=== PATIENT | female | born 1945 | race Two or more races ===

== ENCOUNTER → 2024-05-02 | Outpatient (CLI) | payer OTHER, MEDICAID, SELFPAY ==
[2024-05-02 11:05] LABS: Alanine Aminotransferase 25 U/L (10-49); Albumin, Serum 4.6 gm/dL (3.4-4.8); Albumin/Globulin Ratio 1.9 (1.2-2.2); Alkaline Phosphatase 96 U/L (46-116); Anion Gap 5 (7-16); Aspartate Amino Transferase 21 U/L (0-34); BUN/Creatinine Ratio 26 Ratio (12-20); Bilirubin,Total 0.5 mg/dL (0.3-1.2); Blood Urea Nitrogen 23 mg/dL (9-23); Calcium 9.8 mg/dL (8.3-10.6); Calcium (Corrected) 9.8 mg/dL (8.5-10.1); Carbon Dioxide 27.5 mMol/L (20.0-31.0); Cardiac Risk Estimate 3.7 RATIO (3.7-5.6); Chloride 106 mMol/L (98-107); Cholesterol 177 mg/dL (132-200); Creatinine (Component) 0.9 mg/dL (0.6-1.3); Free T4 (Free Thyroxine) 1.64 ng/dL (0.89-1.76); Globulin 2.4 gm/dL (2.3-3.5); Glucose 96 mg/dL (74-106); HDL Cholesterol 48 mg/dL (40-60); LDL Cholesterol,Calculated 108 mg/dL (0-130); Osmolality,Calculated 279 (275-295); Potassium 4.5 mMol/L (3.4-5.1); Sodium 138 mMol/L (136-145); Thyroid Stimulating Hormone 0.35 uIU/mL (0.55-4.78); Triglycerides 106 mg/dL (30-150); eGFR > 60 See Note
[2024-05-02 11:17] LABS: Glucose Estimated Average 114 mg/dL (80-131); Hemoglobin A1C 5.6 % Hgb (4.8-6.0)
== END | disposition home or self-care (01) ==
PROVIDERS: PCP Internal Medicine; Referring Provider Internal Medicine; Visit Provider Internal Medicine
DX: E03.4 Atrophy of thyroid (acquired) (principal); I10 Essential (primary) hypertension
CPT/HCPCS: 36415; 80053; 80061; 83036; 84439; 84443

== ENCOUNTER 2024-05-12 20:17 | Emergency (ER) | payer OTHER, MEDICAID, SELFPAY ==
[2024-05-12 20:25] VITALS: PULSE 62; O2SAT 97; BMI 35.6
[2024-05-12 20:42] VITALS: BP 133/72; PULSE 60; RESP 18; TEMP 36.8; O2SAT 97
--- NOTE | 2024-05-12 20:50 | XR_ITS ---
Examination: PA lateral chest 2 views Technique: Upright PA lateral chest 2 views Exam date and time: May 12, 2024 at 2114 hrs. Comparison September 14, 2022 Indications: Onset chest pain today. Findings: Mild prominence cardiac contour Cardiac leads satisfactory position Mild to moderate vascular congestion Suspicious for minimal septal edema at the lung bases No lobar pneumonia Moderate osteopenia Impression: Suspicious for early heart failure
--- NOTE | 2024-05-12 20:50 | XR_ITS ---
Examination: CT brain head without contrast. 2-D sagittal coronal reconstructions Date and time of exam:May 12, 2024 2057 hrs. Indications: Onset dizziness generalized body weakness and nausea today, history dizziness September 14, 2022 CTDI: vol (mGy):43.6 DLP: (mGycm):828 Technique: Multiple CT axial sections of the brain have been obtained, 5 mm slice thickness. Contrast has not been administered. 2-D sagittal, coronal reconstructions have been obtained Low dose protocols were performed. One or more of the following dose reduction techniques were used; automated exposure control, adjustment of the mA and/or KV according to patient size, use of iterative reconstruction technique. Findings: No significant ventricular enlargement. Intra-axial or extra-axial hemorrhage density is not seen. No mass effect or midline shift Basal cisterns are not remarkable. Fourth ventricle is midline. Cranial vault intact. Impression: Negative for acute hemorrhage, mass effect or midline shift Advise clinical correlation and short-term follow-up as clinically warranted
--- NOTE | 2024-05-12 20:50 | EKG_ITS ---
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
--- NOTE | 2024-05-12 20:51 | PD.EDRME ---
Rapid Medical Screening Exam RME Arrival date/time: 05/12/24 20:17 78-year-old female with past medical history of hypothyroidism, hypertension, diabetes, presents to the emergency department complaining of dizziness with nausea that started today. Chief Complaint: General Adult/Misc Complain Time Seen by Provider: 05/12/24 20:48 Vital signs: Vital Signs Temperature 98.3 F 05/12/24 20:42 Pulse Rate 60 05/12/24 20:42 Respiratory Rate 18 05/12/24 20:42 Blood Pressure 133/72 H 05/12/24 20:42 Pulse Oximetry (%) 97 05/12/24 20:42 Oxygen Delivery Method Room Air 05/12/24 20:42 Vital signs reviewed by provider: Yes
[2024-05-12 21:57] LABS: Basophils % (Auto) 1 % (0-2.5); Eosinophils # (Auto) 0.1 Thou/mm3 (0.0-0.5); Eosinophils % (Auto) 2 % (0-10); Hematocrit 39.6 % (36.0-46.0); Hemoglobin 13.3 g/dL (12.0-16.0); Immature Granulocytes % (Auto) 0 % (0-0); Immature Granulocytes Auto 0.01 Thou/mm3 (0.00-0.00); Lymphocytes # (Auto) 1.6 Thou/mm3 (1.0-4.8); Lymphocytes % (Auto) 21 % (10-50); Mean Corpuscular HGB Conc 33.6 g/dl (31.0-37.0); Mean Corpuscular Hemoglobin 28.6 pg (25.0-35.0); Mean Corpuscular Volume 85 fL (80-100); Monocytes # (Auto) 0.5 Thou/mm3 (0.0-0.8); Monocytes % (Auto) 6 % (0-12); Neutrophils # (Auto) 5.4 Thou/mm3 (1.8-7.7); Neutrophils % (Auto) 70 % (37-80); Nucleated Red Blood Cell % 0 /100 WBC (0); Platelet Count 172 Thou/mm3 (140-440); RDW Standard Deviation 44.2 fL (36.4-46.3); Red Blood Count 4.65 Miln/mm3 (4.00-5.20); White Blood Count 7.7 Thou/mm3 (3.6-11.0)
[2024-05-12 22:06] LABS: Partial Thromboplastin Time 23.6 Seconds (22.0-36.0); Prothrombin Time 10.9 Seconds (9.0-12.2)
[2024-05-12 22:11] LABS: Collection Type, Urine Clean Catch
[2024-05-12 22:11] LABS: B-Type Natriuretic Peptide 95 pg/mL (0-100)
[2024-05-12 22:15] LABS: Alanine Aminotransferase 15 U/L (10-49); Albumin, Serum 4.9 gm/dL (3.4-4.8); Albumin/Globulin Ratio 1.6 (1.2-2.2); Alkaline Phosphatase 96 U/L (46-116); Anion Gap 6 (7-16); Aspartate Amino Transferase 21 U/L (0-34); BUN/Creatinine Ratio 21 Ratio (12-20); Bilirubin,Total 0.3 mg/dL (0.3-1.2); Blood Urea Nitrogen 25 mg/dL (9-23); Calcium 10.1 mg/dL (8.3-10.6); Calcium (Corrected) 10.1 mg/dL (8.5-10.1); Carbon Dioxide 25.2 mMol/L (20.0-31.0); Chloride 104 mMol/L (98-107); Creatinine (Component) 1.2 mg/dL (0.6-1.3); Estimated Creatinine Clearance 38.4 mL/min (>60); Free T4 (Free Thyroxine) 1.94 ng/dL (0.89-1.76); Glucose 119 mg/dL (74-106); Osmolality,Calculated 275 (275-295); Potassium 4.1 mMol/L (3.4-5.1); Sodium 135 mMol/L (136-145); Thyroid Stimulating Hormone 0.59 uIU/mL (0.55-4.78); Total Protein 7.9 gm/dL (5.7-8.2); Troponin I < 0.020 ng/mL (0.0-0.045); eGFR 46 See Note
[2024-05-12 22:32] LABS: Bacteria,Urine 1+; Bilirubin,Urine Negative (Negative); Blood,Urine Negative (Negative); Budding Yeast,Urine Present; Clarity,Urine Turbid (Clear/Hazy); Color,Urine Yellow (Lt Yel-Yel); Glucose, Urine Trace (Negative); Hyaline Casts,Urine 1 /hpf (0-1); Ketones,Urine Negative (Negative); Leukocyte Esterase,Urine Positive (Negative); Nitrite,Urine Negative (Negative); PH,Urine 5.5 (5.0-7.0); Protein,Urine 1+ (Neg - Trace); RBC,Urine 36 /hpf (0-3); Specific Gravity,Urine 1.025 (1.001-1.035); Squamous Epithelial Cell,Urine 14 /hpf (0-5); Urobilinogen,Urine Negative mg/dL (0.0-1.0); WBC,Urine 49 /hpf (0-5)
[2024-05-12 22:33] LABS: Amphetamine/Methamp Scrn,U Negative (Negative); Barbiturate Screen,Urine Negative (Negative); Benzodiazepines Screen,Urine Negative (Negative); Benzoylecgonine Screen, Ur Negative (Negative); Fentanyl Screen,Urine Negative (Negative); Opiate Screen,Urine Negative (Negative); THC Screen,Urine Negative (Negative)
[2024-05-13 01:52] LABS: Troponin I < 0.020 ng/mL (0.0-0.045)
--- NOTE | 2024-05-13 02:15 | PD.EDADULT ---
ED General RME/HPI General Chief complaint: General Adult/Misc Complain Stated complaint: GENERAL WEAKNESS Time Seen by Provider: 05/12/24 20:48 Source: patient Arrival date/time: 05/12/24 20:17 78-year-old female with past medical history of hypothyroidism, hypertension, diabetes, presents to the emergency department complaining of dizziness with nausea that started today. Patient denies any fever, chills, shortness of breath, difficulty breathing, chest pain, vomiting, diarrhea, or any other associated symptom. Mode of arrival: ambulatory Limitations: no limitations RME / HPI RME / HPI narrative: 05/12/24 20:17 78-year-old female with past medical history of hypothyroidism, hypertension, diabetes, presents to the emergency department complaining of dizziness with nausea that started today. Related Data Home Medications ?Medication ?Instructions ?Recorded ?Confirmed montelukast 10 mg tablet 10 mg PO DAILY 02/02/19 09/15/22 sertraline 50 mg tablet 50 mg PO DAILY 02/02/19 09/15/22 alendronate 70 mg tablet 70 mg PO QWEEK 09/15/22 09/15/22 levothyroxine 25 mcg tablet 25 mcg PO QDAY 09/15/22 09/15/22 losartan 100 mg tablet 100 mg PO QDAY 09/15/22 09/15/22 metformin 500 mg tablet 500 mg PO QDAY 09/15/22 09/15/22 metoprolol succinate 50 mg 50 mg PO QDAY 09/15/22 09/15/22 tablet,extended release 24 hr Previous Rx's ?Medication ?Instructions ?Recorded ciprofloxacin HCl 250 mg tablet 250 mg PO BID 5 days #10 tabs 05/13/24 (Cipro) Allergies Allergy/AdvReac Type Severity Reaction Status Date / Time ampicillin Allergy Mild Rash Verified 01/03/21 17:14 erythromycin base Allergy Unknown Verified 01/03/21 17:14 naproxen Allergy Unknown Verified 01/03/21 17:14 Sulfa (Sulfonamide Allergy Unknown Verified 01/03/21 17:14 Antibiotics) tetracycline Allergy Unknown Verified 01/03/21 17:14 Review of Systems Review of Systems Systems Reviewed: All systems reviewed, normal except as documented Constitutional Constitutional: Reports system reviewed and no additional complaints, except as documented, Denies body ache(s), Denies chills and Denies fever(s) Eyes Eyes: Reports system reviewed and no additional complaints, except as documented and Denies change in vision ENT Ears, Nose, Mouth, and Throat: Reports system reviewed and no additional complaints, except as documented, Denies disequilibrium, Denies dizziness, Denies sore throat and Reports vertigo Cardiovascular Cardiovascular: Reports system reviewed and no additional complaints, except as documented, Denies chest pain and Denies dyspnea Respiratory Respiratory: Reports system reviewed and no additional complaints, except as documented, Denies chest congestion, Denies cough and Denies dyspnea Gastrointestinal Gastrointestinal: Reports system reviewed and no additional complaints, except as documented, Denies abdominal pain, Reports nausea and Denies vomiting Musculoskeletal Musculoskeletal: Reports system reviewed and no additional complaints, except as documented, Denies abnormal gait and Denies arthralgias Integumentary/Breasts Skin/Breast: Reports system reviewed and no additional complaints, except as documented, Denies erythema, Denies rash and Denies wounds Neurologic Neurologic: Reports system reviewed and no additional complaints, except as documented, Denies abnormal gait, Denies disequilibrium, Denies dizziness and Reports vertigo Past Medical History Past Medical History CARDIAC: Positive Hypertension; Negative Congestive Heart Failure RESPIRATORY: Positive Asthma; Negative Chronic Obstructive Pulmonary Disease (COPD) GENITOURINARY: Negative Renal Disease REPRODUCTIVE: Positive Previous Pregnancies MUSCULOSKELETAL: Positive Arthritis ENT: Positive Cataracts ENDOCRINE: Positive Diabetes Mellitus Type 2 and Hypothyroidism; Negative Diabetes Mellitus Type 1 PSYCHO/SOCIAL: Positive Anxiety OTHER HISTORY: Positive Measles; Negative Falls, Blood Transfusions, Anesthesia Reactions or Cancer Family History FAMILY HISTORY: Positive Family Cancer Surgical History SURGICAL: Negative Joint Replacement Social History SMOKING STATUS: Never smoker SUBSTANCE USE: does not use ED Exam General Limitations: Present no limitations General appearance: Present alert and in no apparent distress Head Head exam: Present atraumatic Eye Eye exam: Present normal appearance, PERRL and EOMI ENT ENT exam: Present normal exam, normal oropharynx and mucous membranes moist Neck Neck exam: Present normal inspection, full ROM and trachea midline Chest Chest inspection: Present normal inspection and symmetric chest wall rise Respiratory Respiratory exam: Present normal lung sounds bilaterally Cardiovascular Cardiovascular exam: Present regular rate, normal rhythm and normal heart sounds Abdominal Exam Abdominal exam: Present soft and normal bowel sounds Extremities Exam Extremities exam: Present normal inspection and full ROM Back Exam Back exam: Present normal inspection and full ROM Neurological Exam Neurological exam: Present alert, oriented X3 and CN II-XII intact Psychiatric Psychiatric exam: Present normal affect and normal mood Skin Skin exam: Present warm, dry, intact and normal color Course Quality Measures none Orders Category Date Time Status EKG (ED ONLY) *Do not use* NOW Care 05/12/24 20:[address] head/brain wo con Stat Exams 05/12/24 20:50 Completed EKG (ED Only) Stat Exams 05/12/24 20:50 Draft XR chest 2V Stat Exams 05/12/24 20:50 Completed B-Type Natriuretic Peptide Stat Lab 05/12/24 21:25 Completed CBC Stat Lab 05/12/24 21:25 Completed Comprehensive Metabolic Panel Stat Lab 05/12/24 21:25 Completed Drug Screen,Urine Stat Lab 05/12/24 22:00 Completed Free T4 (Free Thyroxine) Stat Lab 05/12/24 21:25 Completed Magnesium Stat Lab 05/12/24 21:25 Completed Partial Thromboplastin Time Stat Lab 05/12/24 21:25 Completed Prothrombin Time with INR Stat Lab 05/12/24 21:25 Completed TSH [Thyroid Stimulating Hormone] Stat Lab 05/12/24 21:25 Completed Troponin I Stat Lab 05/12/24 21:25 Completed Troponin I Stat Lab 05/13/24 01:24 Completed Urinalysis Stat Lab 05/12/24 22:00 Completed Vital Signs Vital signs: Vital Signs Temperature 98.3 F 05/12/24 20:42 Pulse Rate 60 05/12/24 20:42 Respiratory Rate 18 05/12/24 20:42 Blood Pressure 133/72 H 05/12/24 20:42 Pulse Oximetry (%) 97 05/12/24 20:42 Oxygen Delivery Method Room Air 05/12/24 20:42 97% room air within normal limit MDM Patient data External records reviewed:: [facility] previous records Clinical information provided by:: patient Social determinants that could affect healthcare access:: none Patient has the following chronic illnesses:: See chart How is presenting disease/condition affected by chronic disease/condition?: uneffected by Evaluation data The following diagnostics were reviewed and interpreted by me:: lab results, radiology exam(s) and EKG tracing(s) Lab and/or radiology exams considered but not ordered:: Ordered Interpretation Summary: Interpreted by me Medications Medications considered but not ordered:: N/A Medication administrations:: N/A Consultations Consultation(s) initiated? (list below): No Diagnosis Differential Diagnosis ED Complaint MDM: Vertigo, CVA, ST elevation myocardial infarction, non-STEMI Most likely diagnosis given after review of the tests above:: Dizziness Admission Indicated Admission indicated?: not indicated Explain why admission is indicated or not indicated:: No admission criteria Admission Request Was there a request for admission?: No Disposition Plan Disposition Plan: Discharge Discharge Attestation Discharge Attestation: The patient and all family members were given an opportunity to ask questions and understood the discharge instructions. Discharge instructions specifically effects, indications for sooner follow up or return to the emergency department, and the expected course of current diagnosis. Patient condition: Stable Medical Decision Making MDM Narrative MDM Narrative: 78-year-old female with past medical history of hypothyroidism, hypertension, diabetes, presents to the emergency department complaining of dizziness with nausea that started today. Patient denies any fever, chills, shortness of breath, difficulty breathing, chest pain, vomiting, diarrhea, or any other associated symptom. Patient GCS of 15 answering questions correctly with appropriate behavior. CBC was unremarkable for any leukocytosis or gross anemia. CBC mild elevation in BUN and GFR compared to previous labs. Patient history of hypothyroid on levothyroxine with normal TSH but elevated free T4. Urinalysis positive for bacteria, WBCs, and leukocytes. Urinalysis did have epithelial cells but due to patient's past medical history diabetes and age we will treat. Troponin and delta Trope within normal limits. EKG sinus rhythm. Chest x-ray showed suspicious early heart failure. CT head was negative for any acute process. Patient appears nontoxic and hemodynamically stable. Patient instructed to follow-up with primary care provider and have repeat thyroid levels checked as well as further workup possible early heart failure. Patient instructed to return to the emergency department for any worsening symptoms or as needed. Differential Diagnosis Differential Diagnosis: Vertigo, CVA, ST elevation myocardial infarction, non-STEMI Lab Data 05/12/24 21:25 05/12/24 21:25 Labs: Lab Results 05/12/24 05/12/24 05/13/24 Range/Units 21:25 22:00 01:24 WBC 7.7 (3.6-11.0) Thou/mm3 RBC 4.65 (4.00-5.20) Miln/mm3 Hgb 13.3 (12.0-16.0) g/dL Hct 39.6 (36.0-46.0) % MCV 85 (80-100) fL MCH 28.6 (25.0-35.0) pg MCHC 33.6 (31.0-37.0) g/dl RDW Std Deviation 44.2 (36.4-46.3) fL Plt Count 172 (140-440) Thou/mm3 Neut % (Auto) 70 (37-80) % Lymph % (Auto) 21 (10-50) % Sullivan % (Auto) 6 (0-12) % Eos % (Auto) 2 (0-10) % Baso % (Auto) 1 (0-2.5) % Neut # (Auto) 5.4 (1.8-7.7) Thou/mm3 Lymph # (Auto) 1.6 (1.0-4.8) Thou/mm3 Sullivan # (Auto) 0.5 (0.0-0.8) Thou/mm3 Eos # (Auto) 0.1 (0.0-0.5) Thou/mm3 Baso # (Auto) 0.0 (0.0-0.2) Thou/mm3 Immature Gran # (Auto) 0.01 H (0.00-0.00) Thou/mm3 Absolute Nucleated RBC 0.00 (0.00-0.00) Thou/mm3 Immature Gran % 0 (0-0) % Nucleated RBC % 0 (0) /100 WBC PT 10.9 (9.0-12.2) Seconds INR 1.0 (0.9-1.3) APTT 23.6 (22.0-36.0) Seconds Sodium 135 L (136-145) mMol/L Potassium 4.1 (3.4-5.1) mMol/L Chloride 104 (98-107) mMol/L Carbon Dioxide 25.2 (20.0-31.0) mMol/L Anion Gap 6 L (7-16) BUN 25 H (9-23) mg/dL Creatinine 1.2 (0.6-1.3) mg/dL Estim Creat Clear Calc 38.4 L (>60) mL/min eGFR 46 L (60 - ) See Note BUN/Creatinine Ratio 21 H (12-20) Ratio Glucose 119 H (74-106) mg/dL Calculated Osmolality 275 (275-295) Calcium 10.1 (8.3-10.6) mg/dL Corrected Calcium 10.1 (8.5-10.1) mg/dL Magnesium 2.0 (1.6-2.6) mg/dL Total Bilirubin 0.3 (0.3-1.2) mg/dL AST 21 (0-34) U/L ALT 15 (10-49) U/L Alkaline Phosphatase 96 (46-116) U/L Troponin I < 0.020 < 0.020 (0.0-0.045) ng/mL B-Natriuretic Peptide 95 (0-100) pg/mL Total Protein 7.9 (5.7-8.2) gm/dL Albumin 4.9 H (3.4-4.8) gm/dL Globulin 3.0 (2.3-3.5) gm/dL Albumin/Globulin Ratio 1.6 (1.2-2.2) TSH 0.59 (0.55-4.78) uIU/mL Free T4 1.94 H (0.89-1.76) ng/dL Ur Collection Type Clean Catch Urine Color Yellow (Lt Yel-Yel) Urine Clarity Turbid A (Clear/Hazy) Urine pH 5.5 (5.0-7.0) Ur Specific [place] 1.025 (1.001-1.035) Urine Protein 1+ A (Neg - Trace) Urine Glucose (UA) Trace (Negative) Urine Ketones Negative (Negative) Urine Blood Negative (Negative) Urine Nitrite Negative (Negative) Urine Bilirubin Negative (Negative) Urine Urobilinogen (Auto) Negative (0.0-1.0) mg/dL Ur Leukocyte Esterase Positive (Negative) Urine RBC 36 H (0-3) /hpf Urine WBC 49 H (0-5) /hpf Ur Squamous Epith Cells 14 H (0-5) /hpf Urine Bacteria 1+ A (None) Hyaline Casts 1 (0-1) /hpf Urine Yeast (Budding) Present A (None) Urine Opiates Screen Negative (Negative) Urine Fentanyl Screen Negative (Negative) Ur Barbiturates Screen Negative (Negative) U Amphetamin/Meth Scrn Negative (Negative) U Benzodiazepines Scrn Negative (Negative) U Cocaine Metab Screen Negative (Negative) U Marijuana (THC) Screen Negative (Negative) Discharge Plan Plan Patient Disposition: HOME (Self Care) Disposition Comment: Stable Prescriptions/Referrals Prescriptions/Med Rec: New ciprofloxacin HCl [Cipro] 250 mg tablet 250 mg PO BID 5 Days Qty: 10 0RF No Action montelukast 10 mg Tablet 10 mg PO DAILY sertraline 50 mg Tablet 50 mg PO DAILY metoprolol succinate 50 mg tablet extended release 24 hr 50 mg PO QDAY alendronate 70 mg tablet 70 mg PO QWEEK levothyroxine 25 mcg tablet 25 mcg PO QDAY metformin 500 mg tablet 500 mg PO QDAY losartan 100 mg tablet 100 mg PO QDAY Referrals: Mckayla Lopez MD [Primary Care Provider] - In 1 week Problem List Clinical Impression: Dizziness, Acute UTI Patient/Caregiver Discharge Instructions Discharge Activity: activity as tolerated Education Materials: ED Dizziness, Uncertain Cause, ED CYSTITIS Female Adult Additional Instructions: Take medication as prescribed. Follow-up with primary care provider in 24 to 48 hours. Return to emergency department for any worsening symptoms or as needed. Print Language: Macedonian Stand Alone Forms: Elinor Award Info., Patient Portal Info Letter PA/LORIN Supervising Physician PA/LORIN Supervising Physician: Dr. Hugo
[2024-05-13 02:36] VITALS: BP 168/78; PULSE 60; RESP 18; TEMP 36.4; O2SAT 99
== END 2024-05-13 02:38 | disposition home or self-care (01) ==
PROVIDERS: Emergency Provider Emergency Medicine; PCP Internal Medicine
DX: R53.1 Weakness (principal); R42 Dizziness and giddiness; R07.9 Chest pain, unspecified; R94.31 Abnormal electrocardiogram [ECG] [EKG]; N39.0 Urinary tract infection, site not specified; I10 Essential (primary) hypertension
CPT/HCPCS: 36415; 70450; 71046; 80053; 80307; 81001; 83735; 83880; 84439; 84443; 84484; 85025; 85610; 85730; 93005; 99284

== ENCOUNTER → 2024-06-09 | Outpatient (CLI) | payer OTHER, MEDICAID, SELFPAY ==
[2024-06-09 11:29] LABS: Creatinine,Random Urine 99 mg/dL (30-125)
== END | disposition home or self-care (01) ==
LOC: SLDO 10:47
PROVIDERS: PCP Internal Medicine; Referring Provider Internal Medicine; Visit Provider Internal Medicine
DX: E11.9 Type 2 diabetes mellitus without complications (principal)
CPT/HCPCS: 82570

== ENCOUNTER → 2024-09-23 | Outpatient (CLI) | payer MEDICARE, MEDICAID, SELFPAY ==
[2024-09-23 11:27] LABS: Basophils % (Auto) 1 % (0-2.5); Eosinophils # (Auto) 0.1 Thou/mm3 (0.0-0.5); Eosinophils % (Auto) 1 % (0-10); Hematocrit 36.5 % (36.0-46.0); Hemoglobin 12.2 g/dL (12.0-16.0); Immature Granulocytes % (Auto) 0 % (0-0); Immature Granulocytes Auto 0.02 Thou/mm3 (0.00-0.00); Lymphocytes # (Auto) 1.2 Thou/mm3 (1.0-4.8); Lymphocytes % (Auto) 24 % (10-50); Mean Corpuscular HGB Conc 33.4 g/dl (31.0-37.0); Mean Corpuscular Hemoglobin 28.4 pg (25.0-35.0); Mean Corpuscular Volume 85 fL (80-100); Monocytes # (Auto) 0.3 Thou/mm3 (0.0-0.8); Monocytes % (Auto) 6 % (0-12); Neutrophils # (Auto) 3.5 Thou/mm3 (1.8-7.7); Neutrophils % (Auto) 68 % (37-80); Nucleated Red Blood Cell % 0 /100 WBC (0); Platelet Count 144 Thou/mm3 (140-440); RDW Standard Deviation 43.2 fL (36.4-46.3); White Blood Count 5.1 Thou/mm3 (3.6-11.0)
[2024-09-23 11:52] LABS: Glucose Estimated Average 114 mg/dL (80-131); Hemoglobin A1C 5.6 % Hgb (4.8-6.0)
[2024-09-23 12:02] LABS: Alanine Aminotransferase 12 U/L (10-49); Albumin, Serum 4.3 gm/dL (3.4-4.8); Albumin/Globulin Ratio 1.8 (1.2-2.2); Alkaline Phosphatase 86 U/L (46-116); Anion Gap 8 (7-16); Aspartate Amino Transferase 16 U/L (0-34); BUN/Creatinine Ratio 24 Ratio (12-20); Bilirubin,Total 0.5 mg/dL (0.3-1.2); Blood Urea Nitrogen 22 mg/dL (9-23); Calcium 9.4 mg/dL (8.3-10.6); Calcium (Corrected) 9.4 mg/dL (8.5-10.1); Carbon Dioxide 25.5 mMol/L (20.0-31.0); Cardiac Risk Estimate 3.1 RATIO (3.7-5.6); Chloride 107 mMol/L (98-107); Cholesterol 144 mg/dL (132-200); Creatinine (Component) 0.9 mg/dL (0.6-1.3); Free T4 (Free Thyroxine) 1.74 ng/dL (0.89-1.76); Globulin 2.4 gm/dL (2.3-3.5); Glucose 103 mg/dL (74-106); HDL Cholesterol 46 mg/dL (40-60); LDL Cholesterol,Calculated 76 mg/dL (0-130); Osmolality,Calculated 282 (275-295); Potassium 4.1 mMol/L (3.4-5.1); Sodium 140 mMol/L (136-145); Total Protein 6.7 gm/dL (5.7-8.2); Triglycerides 110 mg/dL (30-150); eGFR > 60 See Note
[2024-09-23 12:15] LABS: Creatinine MALB Rnd Ur 71 mg/dL (30-125); Microalbumin Creat Ratio 30 mg/gCrea (<30); Microalbumin, Random Urine 21 mg/L (0-300)
== END | disposition home or self-care (01) ==
LOC: COPL 10:38
PROVIDERS: PCP Internal Medicine; Referring Provider Internal Medicine; Visit Provider Internal Medicine
DX: E03.4 Atrophy of thyroid (acquired) (principal); E11.65 Type 2 diabetes mellitus with hyperglycemia
CPT/HCPCS: 36415; 80053; 80061; 82043; 82570; 83036; 84439; 84443; 85025

== ENCOUNTER → 2024-10-06 | Outpatient (CLI) | payer MEDICARE, MEDICAID, SELFPAY ==
[2024-10-06 16:37] LABS: OBS Performed By LAB; OBS QC OK? Yes
[2024-10-06 17:42] LABS: OBS Developer Lot # I-24; Occult Blood, Stool Negative (Negative); Occult Blood, Stool #2 Negative (Negative); Occult Blood, Stool #3 Negative (Negative)
== END | disposition home or self-care (01) ==
LOC: SLDO 16:33
PROVIDERS: PCP Internal Medicine; Referring Provider Internal Medicine; Visit Provider Internal Medicine
DX: E03.4 Atrophy of thyroid (acquired) (principal); E11.65 Type 2 diabetes mellitus with hyperglycemia
CPT/HCPCS: 82270

== ENCOUNTER → 2024-11-11 | Outpatient (CLI) | payer MEDICARE, MEDICAID, SELFPAY ==
[2024-11-11 12:38] LABS: Free T4 (Free Thyroxine) 2.04 ng/dL (0.89-1.76); Thyroid Stimulating Hormone 0.25 uIU/mL (0.55-4.78)
== END | disposition home or self-care (01) ==
PROVIDERS: PCP Internal Medicine; Referring Provider Internal Medicine; Visit Provider Internal Medicine
DX: E03.4 Atrophy of thyroid (acquired) (principal)
CPT/HCPCS: 36415; 84439; 84443

== ENCOUNTER 2024-11-28 10:05 | Day surgery (SDC) | payer MEDICARE, MEDICAID, SELFPAY ==
[2024-11-27 13:37] VITALS: BMI 32.9
[2024-11-28] VITALS (8 sets, daily range): BP systolic 136–192; BP diastolic 66–75; PULSE 60–79; RESP 17–24; TEMP 36.7–37.1; O2SAT 95–99; BMI 32.9
[2024-11-28] MEDS: SODIUM CHLORIDE IV (10:45)
[2024-11-28] MEDS: STERILE WATER IV (10:45)
[2024-11-28] MEDS: VANCOMYCIN IV (10:45)
[2024-11-28] MEDS: SODIUM CHLORIDE 0.9% 500 ML 500 ML 20 ML IV (11:46)
[2024-11-28] MEDS: MIDAZOLAM INJ 1 MG/ML VIAL 2 ML (ASD USE ONLY) 2 MG IVP (11:46)
[2024-11-28] MEDS: fentaNYL CIT INJ 50 mCg/ML AMP 2ML (ASD USE ONLY) IVP (11:46)
[2024-11-28] MEDS: DiphenhydrAMINE INJ 50 MG/ML VIAL 25 MG IVP (11:48)
--- NOTE | 2024-11-28 12:05 | SUR.PHASEII ---
1205: pt received from OR via [facility]. received report from JONI Maddox. pt alert and awake but drifts back to sleep. no s/s of resp. distress or discomfort. no s/s of pain or discomfort.
--- NOTE | 2024-11-28 12:22 | SUR.PHASEII ---
1222: able to drink water without any difficulty
--- NOTE | 2024-11-28 12:22 | SUR.PHASEII ---
1222: able to drink water without any difficulty.
--- NOTE | 2024-11-28 12:52 | SUR.PHASEII ---
1252: pt discharge to home via wheelchair. pt alert and oriented to name, place and time. no s/s of resp. distress or discomfort. no s/s of pain or discomfort. discharge instructions given to Claudia-granddaughter and pt, verbalizes understanding. all belongings brought given back to patient.
== END 2024-11-28 12:52 | disposition home or self-care (01) ==
PROVIDERS: PCP Internal Medicine; Referring Provider Specialist; Visit Provider Specialist
PROC: 0DBE8ZX Excision of Large Intestine, Via Natural or Artificial Opening Endoscopic, Diagnostic (ICD-10-PCS; CPT 45380; principal; 2024-11-28 10:00)
DX: K52.9 Noninfective gastroenteritis and colitis, unspecified (principal); K63.89 Other specified diseases of intestine; K64.9 Unspecified hemorrhoids; K57.30 Diverticulosis of large intestine without perforation or abscess without bleeding; R19.7 Diarrhea, unspecified; I10 Essential (primary) hypertension; E78.5 Hyperlipidemia, unspecified; E03.9 Hypothyroidism, unspecified; E11.9 Type 2 diabetes mellitus without complications; Z79.899 Other long term (current) drug therapy; Z79.02 Long term (current) use of antithrombotics/antiplatelets; Z79.52 Long term (current) use of systemic steroids
CPT/HCPCS: 45380; A4216; J1200; J2250; J3010; J3370; J7040; J7050

== ENCOUNTER → 2025-01-16 | Outpatient (CLI) | payer MEDICARE, MEDICAID, SELFPAY ==
[2025-01-16 11:50] LABS: Free T4 (Free Thyroxine) 1.67 ng/dL (0.89-1.76); Thyroid Stimulating Hormone 1.07 uIU/mL (0.55-4.78)
== END | disposition home or self-care (01) ==
LOC: COPL 10:31
PROVIDERS: PCP Internal Medicine; Referring Provider Internal Medicine; Visit Provider Internal Medicine
DX: E03.4 Atrophy of thyroid (acquired) (principal)
CPT/HCPCS: 36415; 84439; 84443

== ENCOUNTER → 2025-03-24 | Outpatient (CLI) | payer MEDICARE, MEDICAID, SELFPAY ==
[2025-03-24 11:39] LABS: Glucose Estimated Average 114 mg/dL (80-131); Hemoglobin A1C 5.6 % Hgb (4.8-6.0)
[2025-03-24 11:43] LABS: Alanine Aminotransferase 14 U/L (10-49); Albumin, Serum 4.5 gm/dL (3.4-4.8); Albumin/Globulin Ratio 1.8 (1.2-2.2); Alkaline Phosphatase 102 U/L (46-116); Anion Gap 9 (7-16); Aspartate Amino Transferase 15 U/L (0-34); BUN/Creatinine Ratio 29 Ratio (12-20); Bilirubin,Total 0.3 mg/dL (0.3-1.2); Blood Urea Nitrogen 38 mg/dL (9-23); Calcium 10.5 mg/dL (8.3-10.6); Calcium (Corrected) 10.5 mg/dL (8.5-10.1); Carbon Dioxide 24.0 mMol/L (20.0-31.0); Cardiac Risk Estimate 3.3 RATIO (3.7-5.6); Chloride 105 mMol/L (98-107); Cholesterol 135 mg/dL (132-200); Creatinine (Component) 1.3 mg/dL (0.6-1.3); Globulin 2.5 gm/dL (2.3-3.5); Glucose 112 mg/dL (74-106); HDL Cholesterol 41 mg/dL (40-60); LDL Cholesterol,Calculated 72 mg/dL (0-130); Osmolality,Calculated 285 (275-295); Potassium 4.5 mMol/L (3.4-5.1); Sodium 138 mMol/L (136-145); Total Protein 7.0 gm/dL (5.7-8.2); Triglycerides 112 mg/dL (30-150); eGFR 42 See Note
== END | disposition home or self-care (01) ==
LOC: COPL 10:17
PROVIDERS: PCP Internal Medicine; Referring Provider Internal Medicine; Visit Provider Internal Medicine
DX: E11.65 Type 2 diabetes mellitus with hyperglycemia (principal); I10 Essential (primary) hypertension
CPT/HCPCS: 36415; 80053; 80061; 83036